=== PATIENT | female | born 1965 | race Caucasian/White ===

== ENCOUNTER 2019-09-07 08:01 | Outpatient (CLI) | payer OTHER ==
--- NOTE | 2019-09-07 09:58 | Mammography Report ---
Reason: ROUTINE MAMMO Procedure Date: 09/07/2019 Accession Number: [id number] / [id number] Procedure: MGS - Screening Mammo Dig Bilat CPT Code: Final Report FULL RESULT: EXAM: Screening Mammo Dig Bilat DATE: 09/07/2019 8:37 AM CLINICAL HISTORY: Screening encounter. History of late childbearing. TECHNIQUE: (B) - Bilateral CC and MLO views were obtained. Left laterally exaggerated CC view is obtained. COMPARISON: 02/07/2014 through 12/01/2009. PARENCHYMAL PATTERN: (D) - The breast(s) demonstrate(s) heterogeneously dense fibroglandular parenchyma. FINDINGS: Comparing the left MLO projection to 2014 there has been marked interval increase in density in the upper posterior tissue of the breast cone with suggestion of calcifications, 12 cm from the nipple. The finding is replicated on the left CC projection 12 cm from the nipple was a posterior axillary tail. This requires additional spot magnification views as well as 3-D mammography and ultrasound. There are no suspicious masses, calcifications, or areas of distortion in the right breast. IMPRESSION: Incomplete examination. BI-RADS category 0. RECOMMENDATION: (ADDMU) - Additional views using both Mammography and Ultrasound recommended. Left breast. BI-RADS CATEGORY: (0) - Incomplete Examination - need additional evaluation. STANDARD QUALIFYING STATEMENTS: 1. This examination was reviewed with the aid of Computer-Aided Detection (CAD). 2. A negative or benign imaging report should not preclude biopsy if clinically suspicious findings are present. 3. Dense breasts may obscure an underlying neoplasm. 4. This examination was reviewed without the aid of 3D breast imaging (tomosynthesis).
== END 2019-09-07 08:02 | disposition home or self-care (01) ==
LOC: DI.S 08:01
PROVIDERS: ATTEND Nurse Practitioner Family
DX: Z12.31 Encounter for screening mammogram for malignant neoplasm of breast (principal); R92.8 Other abnormal and inconclusive findings on diagnostic imaging of breast
CPT/HCPCS: 77067

== ENCOUNTER 2019-10-12 08:10 | Outpatient (CLI) | payer OTHER ==
--- NOTE | 2019-10-12 10:32 | Mammography Report ---
Reason: ABNORMAL SCREENING Procedure Date: 10/12/2019 Accession Number: [id number] / [id number] Procedure: TOMMY - Diag Special Views Dig LT CPT Code: Final Report FULL RESULT: EXAM: Diag Special Views Dig LT DATE: 10/12/2019 9:20 AM CLINICAL HISTORY: Diagnostic examination. TECHNIQUE: (L) - Left left CC view was obtained. Left magnified CC, left spot CC, left spot MLO and left magnified ML as well as left ML views are obtained. Focused left breast ultrasound is performed. COMPARISON: 09/25/2019 through 12/01/2009. PARENCHYMAL PATTERN: (D) - The breast(s) demonstrate(s) heterogeneously dense fibroglandular parenchyma. FINDINGS: Additional mammographic views confirm calcifications in the left breast upper outer quadrant with a grouping of calcifications 10.8 cm from the nipple on the left MLO projection as seen on image 15 and 19 which is associated with architectural distortion, also seen in CC projection 10.8 cm from the nipple in the lateral upper breast on image 38, suspicious. Focused left breast ultrasound of the left upper outer quadrant is performed which demonstrates no focal mass or architectural distortion which consequently correlates to the mammographic findings. 5 cm from the nipple at the 2:00 axis is a hypoechoic well-circumscribed wider than tall solid appearing mass which measures 0.8 x 0.5 x 0.5 cm, probably benign. IMPRESSION: Suspicious findings. BI-RADS category 4. RECOMMENDATION: (BIOPSY) - stereotactic biopsy with mammography guidance of the left breast architectural distortion with calcifications. 6 month follow-up ultrasound of probably benign left breast mass 2:00 axis 5 cm from the nipple. BI-RADS CATEGORY: (4) - Suspicious. STANDARD QUALIFYING STATEMENTS: 1. This examination was not reviewed with the aid of Computer-Aided Detection (CAD). 2. A negative or benign imaging report should not preclude biopsy if clinically suspicious findings are present. 3. Dense breasts may obscure an underlying neoplasm. 4. This examination was reviewed with the aid of 3D breast imaging (tomosynthesis).
== END 2019-10-12 08:11 | disposition home or self-care (01) ==
LOC: DI 08:10
PROVIDERS: ATTEND Nurse Practitioner Family
DX: R92.8 Other abnormal and inconclusive findings on diagnostic imaging of breast (principal)
CPT/HCPCS: 76642

== ENCOUNTER 2019-11-14 09:15 | Outpatient (CLI) | payer OTHER ==
[2019-11-14] MEDS ORDERED: BUFFERED LIDOCAINE 10 ML SYRINGE ONE (09:34)
[2019-11-14] MEDS ORDERED: BUFFERED LIDOCAINE 10 ML SYRINGE IU ONE (12:05)
--- NOTE | 2019-11-14 12:41 | Mammography Report ---
Reason: ABN MAMMMO - LEFT BREAST CALCS Procedure Date: 11/14/2019 Accession Number: [id number] / [id number] Procedure: TOMMY - Stereotactic Core BX LT CPT Code: 04766 Final Report FULL RESULT: EXAM: Stereotactic Core BX LT with tomographic targeting. DATE: 11/14/2019 11:27 AM CLINICAL HISTORY: ABN MAMMMO - LEFT BREAST CALCS COMPARISON: 10/12/2021 12/01/2009. CLINICAL DATA: Target architectural distortion with calcifications measuring approximately 1 cm in the 1 o'clock axis of the left breast. Informed consent was obtained. The patient was positioned in the mammography machine with biopsy attachment. Targeting imaging was obtained with tomography and the lesion was selected. The breast was approached from the lateral aspect. Using standard aseptic technique, 1% buffered lidocaine was injected into the breasts for local anesthesia. A small romelia was made in the skin with a #11 blade. A 9-gauge vacuum-assisted device was advanced into the breasts towards the target and confirmatory imaging was obtained to verify targeting and 16 specimens were obtained. Specimen radiography was performed which demonstrated the presence of calcifications in the sample. A biopsy marker clip was then placed into the biopsy cavity. The biopsy device was subsequently removed from the breast. Hemostasis was achieved. Follow-up 3-D mammography was then performed to verify biopsy targeting and clip placement. The mammography showed concordant biopsy cavity and clip placement . The wound was dressed and ice applied. The patient was observed for approximately 15 minutes, then discharged from the diagnostic imaging Department in stable condition following instructions on wound care and obtaining biopsy results. The tissue was sent for histologic analysis. IMPRESSION: Stereotactic left breast biopsy with tomographic guidance. RADIA
== END 2019-11-14 09:16 | disposition home or self-care (01) ==
LOC: DI 09:15
PROVIDERS: ATTEND Nurse Practitioner Family
DX: R92.0 Mammographic microcalcification found on diagnostic imaging of breast (principal); N60.12 Diffuse cystic mastopathy of left breast; D24.2 Benign neoplasm of left breast
CPT/HCPCS: 19081

== ENCOUNTER 2021-03-09 09:52 | Outpatient (CLI) | payer BC ==
--- NOTE | 2021-03-09 11:45 | Mammography Report ---
BILATERAL DIGITAL SCREENING MAMMOGRAM 3D/2D WITH EXAGGERATED CC: 03/09/2021 CLINICAL: Family history of breast cancer. Comparison is made to exams dated: 11/14/2019 mammogram, 10/12/2019 mammogram, 09/07/2019 mammogram, mammogram, 01/27/2011 mammogram, and 12/01/2009 mammogram - [facility]. The t issue of both breasts is heterogeneously dense. This may lower the sensitivity of mammography. There is a new architectural distortion in the right breast at 1 o'clock middle depth. No other significant masses, calcifications, or other findings are seen in either breast. IMPRESSION: INCOMPLETE: NEEDS ADDITIONAL IMAGING EVALUATION The new architectural distortion in the right breast is indeterminate. Additional views with possibl e ultrasound are recommended. This exam was interpreted at Station ID: [id number]. NOTE: For mammograms, a report in lay terms will be sent to the patient. Approximately 15% of breast malignancies will not be visualized mammographically. In the management of a palpable breast mass, a negative mammogram must not discourage biopsy of a clinically suspicious lesion. Electronically Signed By: Roderick Stearns M.D. aty/:03/09/2021 10:51:58 ACR BI-RADS Category 0: Incomplete 3340F PARENCHYMAL PATTERN: (D) - The breast(s) demonstrate(s) heterogeneously dense fibroglandular dov iraheta. BI-RADS CATEGORY: (0) - 0 Mammo and [place] [id number] Immediate follow-up LATERALITY: (R)
== END 2021-03-09 09:53 | disposition home or self-care (01) ==
LOC: DI.S 09:52
PROVIDERS: ATTEND Registered Nurse
DX: Z12.31 Encounter for screening mammogram for malignant neoplasm of breast (principal); Z80.3 Family history of malignant neoplasm of breast; R92.8 Other abnormal and inconclusive findings on diagnostic imaging of breast

== ENCOUNTER 2021-04-08 08:38 | Outpatient (CLI) | payer BC ==
--- NOTE | 2021-04-09 12:49 | Mammography Report ---
UNILATERAL RIGHT DIGITAL DIAGNOSTIC MAMMOGRAM 3D/2D: 04/08/2021 CLINICAL: Patient returns today to evaluate a focal asymmetry in the right breast. Comparison is made to exams dated: 03/09/2021 mammogram, 09/07/2019 mammogram, and 02/07/2014 mammogra m - [facility]. The tissue of right breast is heterogeneously dense. This may lowe r the sensitivity of mammography. There is an irregular mass with a spiculated margin in the right breast at 12 o'clock middle depth. This is seen in additional views. No other significant masses or calcifications are seen in the breast. IMPRESSION: INCOMPLETE: NEEDS ADDITIONAL IMAGING EVALUATION The irregular mass in the right breast is indeterminate. An ultrasound is recommended. This exam was interpreted at Station ID: [id number]. NOTE: For mammograms, a report in lay terms will be sent to the patient. Approximately 15% of breast malignancies will not be visualized mammographically. In the management of a palpable breast mass, a negative mammogram must not discourage biopsy of a clinically suspicious lesion. Electronically Signed By: Son angeles/darius:04/08/2021 11:17:19 ACR BI-RADS Category 0: Incomplete 3340F PARENCHYMAL PATTERN: (D) - The breast(s) demonstrate(s) heterogeneously dense fibroglandular dov iraheta. BI-RADS CATEGORY: (0) - 0 Ultrasound [id number] Immediate follow-up LATERALITY: (R)
--- NOTE | 2021-04-09 12:50 | Ultrasound Report ---
LIMITED ULTRASOUND OF RIGHT BREAST AND AXILLA: 04/08/2021 CLINICAL: Patient returns today to evaluate a focal asymmetry in the right breast. Comparison is made to exams dated: 04/08/2021 mammogram, 03/09/2021 mammogram, 09/07/2019 mammogram, a nd 02/07/2014 mammogram - [facility]. Color flow and real-time ultrasound of the right breast 11-1 o'clock, and axilla regions were perform ed. Reyez scale images of the real-time examination were reviewed. There is a 0.8 cm x 0.5 cm x 0.3 cm oval mass with a microlobulated and angular margin in the right b reast at 12 o'clock middle depth 8 cm from the nipple. This oval mass is hypoechoic with no posterio r acoustic shadowing or enhancement. This likely correlates with mammography findings. Color flow i maging demonstrates that there is no increase in vascularity. There also is a 1.2 cm x 1.5 cm x 0.3 cm irregular area of heterogeneous tissue in the right breast a t 11 o'clock anterior depth 7 cm from the nipple. This lesion is hypoechoic with no posterior acoust ic shadowing or enhancement. This most likely correlates as an incidental finding. Additionally, there is a benign 0.4 cm oval cyst with a smooth internal wall in the right breast at 1 o'clock posterior depth 8 cm from the nipple. This oval cyst displays posterior acoustic enhancemen t. This correlates as an incidental finding. No significant abnormalities were seen sonographically in the right axilla. IMPRESSION: SUSPICIOUS OF MALIGNANCY The 0.8 cm x 0.5 cm x 0.3 cm oval mass in the right breast at 12 o'clock middle depth is suspicious o f malignancy. An ultrasound guided biopsy is recommended. The findings and recommendations were dis cussed with the patient by the onsite radiologist, Dr. Morales, at the time of the exam. The 1.2 cm x 1.5 cm x 0.3 cm irregular area of heterogeneous tissue in the right breast at 11 o'clock anterior depth is probably benign. A follow-up ultrasound in 6 months is recommended. The 0.4 cm oval cyst in the right breast at 1 o'clock posterior depth is benign. This exam was interpreted at Station ID: [id number]. Electronically Signed By: Son Patel M.D. ar/:04/08/2021 11:37:48 Ultrasound BI-RADS: 4 Suspicious for malignancy BI-RADS CATEGORY: (4) - 4 None [id number] Immediate follow-up LATERALITY: ()
== END 2021-04-08 08:39 | disposition home or self-care (01) ==
LOC: DI 08:38
PROVIDERS: ATTEND Registered Nurse
DX: R92.8 Other abnormal and inconclusive findings on diagnostic imaging of breast (principal)

== ENCOUNTER 2021-08-14 11:16 | Emergency (ER) | payer BC ==
[2021-08-14] MEDS ORDERED: cefTRIAXone 1 GM in SODIUM CHLORIDE 0.9% MINIBAG 100 ML IV STA (12:16)
--- NOTE | 2021-08-14 12:17 | ED Physician Documentation ---
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 She had a lump removal reduction and lift. 2 days ago she began to develop redness and swelling to the lateral aspect of the right breast. Along the incision line she has pain tenderness redness and warmth. She does not have any drainage. She has developed fever today. Review of Systems Constitutional: reports: Fever, Chills, Myalgias Eyes: denies: Decreased vision Ears: denies: Ear pain Nose: denies: Congestion Throat: denies: Sore throat Cardiac: denies: Chest pain / pressure, Palpitations Respiratory: denies: Dyspnea, Cough GI: denies: Abdominal Pain, Nausea, Vomiting, Constipation, Diarrhea : denies: Dysuria Skin: denies: Rash Musculoskeletal: denies: Neck pain, Back pain, Extremity pain Neurologic: denies: Generalized weakness, Focal weakness, Numbness PD PAST MEDICAL HISTORY - Present Medications Home Medications: Ambulatory Orders Medication Instructions Recorded Confirmed cephALEXin [Keflex] 500 mg PO Q6H #28 cap 08/14/21 - Allergies Allergies/Adverse Reactions: Allergies Allergy/AdvReac Type Severity Reaction Status Date / Time No Known Drug Allergies Allergy Verified 08/14/21 11:30 - Social History Does the pt smoke?: No Smoking Status: Never smoker PD ED PE NORMAL - Vitals Vital signs reviewed: Yes (hypertensive) - General General: Alert and oriented X 3, No acute distress, Well developed/nourished - HEENT HEENT: Atraumatic, PERRL, EOMI - Neck Neck: Supple, no meningeal sign, No bony TTP - Cardiac Cardiac: RRR, No murmur - Respiratory Respiratory: No respiratory distress, Clear bilaterally, Other (There is swelling and erythema to the right breast to the entire lateral aspect of the breast extending to the axilla. It is well demarcated along the incision line. One portion of the incision is open superficially and there is no drainage. Nipple appear viable and intact. ) - Abdomen Abdomen: Soft, Non tender - Back Back: No CVA TTP, No spinal TTP - Derm Derm: Warm and dry, Other (redness swelling warmth and tenderness to the lateral aspect of the right breast. ) - Extremities Extremities: No deformity, No edema - Neuro Neuro: Alert and oriented X 3, education analyst 2-12 intact, No motor deficit, No sensory deficit, Normal speech Eye Opening: Spontaneous Motor: Obeys Commands Verbal: Oriented GCS Score: 15 - Psych Psych: Normal mood, Normal affect Results - Vitals Vitals: Vital Signs - 24 hr 08/14/21 08/14/21 08/14/21 11:18 13:55 16:13 Temperature 36.9 C 38.8 C H 38.1 C H Heart Rate 80 90 80 Respiratory 16 16 16 Rate Blood Pressure 152/84 H 149/80 H 119/59 L O2 Saturation 100 100 100 Oxygen O2 Source Room air - Labs Labs: Laboratory Tests 08/14/21 08/14/21 08/14/21 12:46 12:46 14:15 WBC 13.5 H RBC 4.06 L Hgb 11.7 L Hct 36.6 L MCV 90.1 MCH 28.8 MCHC 32.0 RDW 13.4 Plt Count 255 MPV 9.8 Neut # (Auto) Not Reportable Lymph # (Auto) Not Reportable Hale # (Auto) Not Reportable Eos # (Auto) Not Reportable Baso # (Auto) Not Reportable Absolute Nucleated RBC Not Reportable Total Counted 100 Band Neuts % (Manual) 0 Reactive Lymphs % (Man) 3 Abnorm Lymph % (Manual) 0 Nucleated RBC % Not Reportable Neutrophils # (Manual) 10.3 H Lymphocytes # (Manual) 2.0 Monocytes # (Manual) 0.9 Eosinophils # (Manual) 0.3 Basophils # (Manual) 0.0 Differential Comment MANUAL DIFFERENTIAL WBC Morphology NORMAL APPEARANCE Platelet Estimate NORMAL (130-450,000) Platelet Morphology NORMAL APPEARANCE RBC Morph Micro Appear NORMAL APPEARANCE Sodium 135 Potassium 4.0 Chloride 100 L Carbon Dioxide 26 Anion Gap 9.0 BUN 8 Creatinine 0.6 Estimated GFR (MDRD) 104 Glucose 74 Calcium 9.5 Total Bilirubin 0.5 AST 23 ALT 28 Alkaline Phosphatase 62 Total Protein 8.2 Albumin 4.0 Globulin 4.2 Albumin/Globulin Ratio 1.0 Lipase 21 L Nasal Adenovirus (PCR) NOT DETECTED Nasal B. parapertussis DNA (PCR) NOT DETECTED Nasal Coronavir 229E PCR NOT DETECTED Nasal Coronavir HKU1 PCR NOT DETECTED Nasal Coronavir NL63 PCR NOT DETECTED Nasal Coronavir OC43 PCR NOT DETECTED Nasal Enterovir/Rhinovir PCR NOT DETECTED Nasal Influenza B PCR NOT DETECTED Nasal Influenza A PCR NOT DETECTED Nasal Parainfluen 1 PCR NOT DETECTED Nasal Parainfluen 2 PCR NOT DETECTED Nasal Parainfluen 3 PCR NOT DETECTED Nasal Parainfluen 4 PCR NOT DETECTED Nasal RSV (PCR) NOT DETECTED Nasal B.pertussis DNA PCR NOT DETECTED Nasal C.pneumoniae (PCR) NOT DETECTED Srikanth Human Metapneumo PCR NOT DETECTED Nasal M.pneumoniae (PCR) NOT DETECTED Nasal SARS-CoV-2 (PCR) NOT DETECTED - Rads (name of study) u/s right breast Radiology: Other (rewiewed at bedside with submarine cable equipment technician. large fluid collection to the lateral aspect of the right breast. ) PD MEDICAL DECISION MAKING - ED course Complexity details: reviewed results, re-evaluated patient, considered differential, d/w patient ED course: 55-year-old female with a recent oncoplastic surgery appears to have a cellulitis to the breast on the right side. She also has what appears to be a seroma to the right side and this is incised and drained by Dr. Mas removing about a cup of fluid. Fluid is sent for culture. Dr. Lucina West plastic surgery was consulted in the case and recommended removal of fluid, culture and antibiotic. The patient was given IV rocephin prior to obtaining this specimen. Dr. West will follow the patient in the clinic this week. Departure - Departure Disposition: 01 Home, Self Care Clinical Impression: Cellulitis of right breast, Seroma of breast Condition: Stable Instructions: ED Infec Skin Cellulitis Follow-Up: YASMANI MALONE ARNP [Primary Care Provider] - Prescriptions: cephALEXin [Keflex] 500 mg PO Q6H #28 cap Comments: Follow up with Dr. Perla this week. If you have worsening of symptoms or development of new symptoms return for re-evaluation. Discharge Date/Time: 08/14/21 16:51
[2021-08-14 12:56] LABS: BASOPHILS % (AUTO) 0.4 %; EOSINOPHILS % (AUTO) 0.4 %; HCT - HEMATOCRIT 36.6 % (37.0-47.0); HGB - HEMOGLOBIN 11.7 g/dL (12.0-16.0); LYMPHOCYTES % (AUTO) 14.1 %; MEAN CORPUSCULAR HEMOGLOBIN 28.8 pg (27.0-31.0); MEAN CORPUSCULAR VOLUME 90.1 fL (81.0-99.0); MEAN PLATELET VOLUME 9.8 fL (7.9-10.8); MONOCYTES % (AUTO) 16.7 %; NEUTROPHILS % (AUTO) 67.8 %; PLT - PLATELET COUNT 255 10^3/uL (130-450); RED BLOOD COUNT 4.06 10^6/uL (4.20-5.40); RED CELL DISTRIBUTION WIDTH 13.4 % (12.0-15.0); WHITE BLOOD COUNT 13.5 x10^3/uL (4.8-10.8)
[2021-08-14 13:00] LABS: ABNORMAL LYMPHS % (MANUAL) 0 %; BAND NEUTROPHILS % (MANUAL) 0 %
[2021-08-14 13:08] LABS: BILIRUBIN,TOTAL 0.5 mg/dL (0.2-1.0); CALCIUM 9.5 mg/dL (8.5-10.3); CREATININE 0.6 mg/dL (0.4-1.0); TOTAL PROTEIN 8.2 g/dL (6.7-8.2)
[2021-08-14 13:32] LABS: EOSINOPHILS # (MANUAL) 0.3 10^3/uL (0-0.7); LYMPHOCYTES % (MANUAL) 12 %; MONOCYTES # (MANUAL) 0.9 10^3/uL (0.0-1.0); NEUTROPHILS # (MANUAL) 10.3 10^3/uL (1.5-6.6); REACTIVE LYMPHS % (MANUAL) 3 %
[2021-08-14 13:34] LABS: DIFFERENTIAL COMMENT MANUAL DIFFERENTIAL; PLATELET ESTIMATE, MANUAL NORMAL (130-450,000) (NORMAL); PLATELET MORPHOLOGY NORMAL APPEARANCE (NORMAL); RBC MORPHOLOGY (MULTIPLE) NORMAL APPEARANCE (NORMAL); WBC MORPHOLOGY (MULTIPLE) NORMAL APPEARANCE (NORMAL)
[2021-08-14] MEDS ORDERED: ACETAMINOPHEN 325 MG TABLET PO STA (13:58)
[2021-08-14] MEDS ORDERED: cefTRIAXone 1 GM VIAL ONE (14:09)
[2021-08-14] MEDS ORDERED: BUFFERED LIDOCAINE 10 ML SYRINGE SUBQ STA (15:26)
[2021-08-14 15:34] LABS: B. PARAPERTUSSIS- RESP PCR PAN NOT DETECTED; B. PERTUSSIS- RESP PCR PANEL NOT DETECTED; C. PNEUMONIAE- RESP PCR PANEL NOT DETECTED; CORONAVIRUS 229E-RESP PCR NOT DETECTED; CORONAVIRUS HKU1-RESP PCR NOT DETECTED; CORONAVIRUS NL63-RESP PCR NOT DETECTED; CORONAVIRUS OC43-RESP PCR NOT DETECTED; HUMAN METAPNEUMOVIRUS NOT DETECTED; INFLUENZA A- RESP PCR PANEL NOT DETECTED; INFLUENZA B - RESP PCR PANEL NOT DETECTED; M. PNEUMONIAE- RESP PCR PANEL NOT DETECTED; PARAINFLUENZA VIRUS 1 NOT DETECTED; PARAINFLUENZA VIRUS 2 NOT DETECTED; PARAINFLUENZA VIRUS 3 NOT DETECTED; PARAINFLUENZA VIRUS 4 NOT DETECTED; RHINOVIRUS/ENTEROVIRUS NOT DETECTED; RSV- RESP PCR PANEL NOT DETECTED; SARS-CoV-2 -RESP PCR PANEL NOT DETECTED
[2021-08-14 16:14] VITALS: BP 119/59
--- NOTE | 2021-08-14 16:20 | CONSULTATION NOTE ---
Referring Provider Consult Date: 08/14/21 Chief Complaint - Chief Complaint Chief Complaint: right breast pain with fevers and chills History of Present Illness - History Obtained From History obtained from: pt Exam Limitations: none - History of Present Illness HPI Comment/Other: recent right breast surgery. pain, fever, chills, not feeling well. seen in the ED. Meds/Allgy - Allergies Allergies/Adverse Reactions: Allergies Allergy/AdvReac Type Severity Reaction Status Date / Time No Known Drug Allergies Allergy Verified 08/14/21 11:30 Exam - Vital Signs Vital Signs: Vital Signs x48h Temp Pulse Resp BP Pulse Ox 08/14/21 16:13 38.1 C H 80 16 119/59 L 100 08/14/21 13:55 38.8 C H 90 16 149/80 H 100 08/14/21 11:18 36.9 C 80 16 152/84 H 100 - Physical Exam General Appearance: positive: No acute distress, Alert Eyes Bilateral: positive: PERRL, EOMI ENT: positive: No signs of dehydration Neck: positive: No JVD Respiratory: positive: No respiratory distress Abdomen: positive: No distention Comments/Other: right breast firm. reduction type incisions healed. ultrasound large fluid collection. after parq and consent I and D is performed. clean technique and local anesthesia culture taken as requested per her surgeon perhaps 200 ml very warm serosanguinous fluid well tolerated. Conclusion and Plan - Lab Results Laboratory Results 08/14/21 14:15: Nasal Adenovirus (PCR) NOT DETECTED, Nasal B. parapertussis DNA (PCR) NOT DETECTED, Nasal Coronavir 229E PCR NOT DETECTED, Nasal Coronavir HKU1 PCR NOT DETECTED, Nasal Coronavir NL63 PCR NOT DETECTED, Nasal Coronavir OC43 PCR NOT DETECTED, Nasal Enterovir/Rhinovir PCR NOT DETECTED, Nasal Influenza B PCR NOT DETECTED, Nasal Influenza A PCR NOT DETECTED, Nasal Parainfluen 1 PCR NOT DETECTED, Nasal Parainfluen 2 PCR NOT DETECTED, Nasal Parainfluen 3 PCR NOT DETECTED, Nasal Parainfluen 4 PCR NOT DETECTED, Nasal RSV (PCR) NOT DETECTED, Nasal B.pertussis DNA PCR NOT DETECTED, Nasal C.pneumoniae (PCR) NOT DETECTED, Srikanth Human Metapneumo PCR NOT DETECTED, Nasal M.pneumoniae (PCR) NOT DETECTED, Nasal SARS-CoV-2 (PCR) NOT DETECTED 08/14/21 12:46: Sodium 135, Potassium 4.0, Chloride 100 L, Carbon Dioxide 26, Anion Gap 9.0, BUN 8, Creatinine 0.6, Estimated GFR (MDRD) 104, Glucose 74, Calcium 9.5, Total Bilirubin 0.5, AST 23, ALT 28, Alkaline Phosphatase 62, Total Protein 8.2, Albumin 4.0, Globulin 4.2, Albumin/Globulin Ratio 1.0, Lipase 21 L 08/14/21 12:46: WBC 13.5 H, RBC 4.06 L, Hgb 11.7 L, Hct 36.6 L, MCV 90.1, MCH 28.8, MCHC 32.0, RDW 13.4, Plt Count 255, MPV 9.8, Neut # (Auto) Not Reportable, Lymph # (Auto) Not Reportable, [place] # (Auto) Not Reportable, Eos # (Auto) Not Reportable, Baso # (Auto) Not Reportable, Absolute Nucleated RBC Not Reportable, Total Counted 100, Band Neuts % (Manual) 0, Reactive Lymphs % (Man) 3, Abnorm Lymph % (Manual) 0, Nucleated RBC % Not Reportable, Neutrophils # (Manual) 10.3 H, Lymphocytes # (Manual) 2.0, Monocytes # (Manual) 0.9, Eosinophils # (Manual) 0.3, Basophils # (Manual) 0.0, Differential Comment MANUAL DIFFERENTIAL, WBC Morphology NORMAL APPEARANCE, Platelet Estimate NORMAL (130-450,000), Platelet Morphology NORMAL APPEARANCE, RBC Morph Micro Appear NORMAL APPEARANCE - Diagnosis Diagnosis: postop infected seroma right breast - Plan Plan: I and D performed. well tolerated daily dry dressing and prn she may remove the current dressing tomorrow am. no need to repack the incision area. follow up [place] surgery as needed she has follow up with her plastic surgeon
--- NOTE | 2021-08-18 12:44 | Ultrasound Report ---
LIMITED ULTRASOUND OF RIGHT BREAST: 08/14/2021 CLINICAL: Diffuse right breast pain. Comparison is made to exams dated: 04/08/2021 ultrasound, 04/08/2021 mammogram, 03/09/2021 mammogram, mammogram, and 10/12/2019 ultrasound - [facility]. Color flow and real-time ultrasound of the right breast 4-11 o'clock region were performed. Reyez sca le images of the real-time examination were reviewed. There is a 8.1 cm x 11.3 cm x 2.9 cm oval fluid collection with a septated internal wall in the right breast at 9 o'clock middle depth 15 cm from the nipple. This oval fluid collection is anechoic and hypoechoic with posterior acoustic enhancement. This correlates as palpated. There is associated ov erlying skin thickening and soft tissue edema. The previously seen suspicious oval mass in the right breast at the 12 o'clock position middle depth is no longer seen. IMPRESSION: BENIGN The 8.1 cm x 11.3 cm x 2.9 cm oval fluid collection in the right breast is most likely a chronic altagracia juan or complicated seroma, although a superimposed infection or abscess is not excluded. Diagnostic and therapeutic aspiration could be performed to direct therapy. Recommend clinical correlation and f ollow up. Preliminary findings were conveyed to the Dr. Purcell of the Emergency Department by the s onographer at the time of the exam. The previously seen suspicious oval mass in the right breast at the 12 o'clock position middle depth is no longer seen. The patient reports she had an outside biopsy demonstrating malignancy, which was subsequently surgically removed. Recommend correlation with outside records. There is no sonographic evidence of malignancy. This exam was interpreted at Station ID: [id number]. Electronically Signed By: Son Patel M.D. ar/:08/14/2021 14:24:44 Ultrasound BI-RADS: 2 Benign BI-RADS CATEGORY: (2) - 2 RECOMMENDATION: (ANNUAL) - Recommend routine annual screening mammography. [id number] 1 year screening LATERALITY: (B)
== END 2021-08-14 16:51 | disposition home or self-care (01) ==
LOC: ED 11:16
DX: N61.0 Mastitis without abscess (principal); M96.843 Postprocedural seroma of a musculoskeletal structure following other procedure; Y83.8 Other surgical procedures as the cause of abnormal reaction of the patient, or of later complication, without mention of misadventure at the time of the procedure; Z98.890 Other specified postprocedural states; Z20.822 Contact with and (suspected) exposure to COVID-19
CPT/HCPCS: 0202U; 10140; 36415; 76642; 80053; 83690; 85025; 87040; 87070; 87205; 96365; 99284; A9270

== ENCOUNTER 2021-11-04 08:02 | Outpatient (CLI) | payer BC ==
[2021-11-04 15:07] LABS: BASOPHILS % (AUTO) 0.8 %; EOSINOPHILS # (AUTO) 0.2 10^3/uL (0.0-0.7); HCT - HEMATOCRIT 36.4 % (37.0-47.0); HGB - HEMOGLOBIN 11.6 g/dL (12.0-16.0); LYMPHOCYTES # (AUTO) 0.7 10^3/uL (1.5-3.5); LYMPHOCYTES % (AUTO) 18.3 %; MEAN CORPUSCULAR HEMOGLOBIN 28.9 pg (27.0-31.0); MEAN CORPUSCULAR HGB CONC 31.9 g/dL (32.0-36.0); MEAN CORPUSCULAR VOLUME 90.5 fL (81.0-99.0); MEAN PLATELET VOLUME 10.3 fL (7.9-10.8); MONOCYTES # (AUTO) 0.5 10^3/uL (0.0-1.0); MONOCYTES % (AUTO) 11.6 %; NEUTROPHILS # (AUTO) 2.6 10^3/uL (1.5-6.6); NEUTROPHILS % (AUTO) 64.8 %; PLT - PLATELET COUNT 220 10^3/uL (130-450); RED BLOOD COUNT 4.02 10^6/uL (4.20-5.40); RED CELL DISTRIBUTION WIDTH 14.8 % (12.0-15.0)
[2021-11-04 15:08] LABS: PT - PROTHROMBIN TIME 11.3 secs (9.9-12.6)
[2021-11-04 15:09] LABS: PARTIAL THROMBOPLASTIN TIME 24.5 secs (24.9-33.3)
[2021-11-04 15:37] LABS: ALBUMIN 3.4 g/dL (3.2-5.5); BILIRUBIN,TOTAL 0.6 mg/dL (0.2-1.0); CALCIUM 9.1 mg/dL (8.5-10.3); CREATININE 0.6 mg/dL (0.4-1.0); POTASSIUM 4.1 mmol/L (3.5-5.0); TOTAL PROTEIN 6.9 g/dL (6.7-8.2)
== END 2021-11-04 08:03 | disposition home or self-care (01) ==
LOC: LAB.S 08:02
PROVIDERS: ATTEND Internal Medicine Medical Oncology
DX: C50.211 Malignant neoplasm of upper-inner quadrant of right female breast (principal); N92.1 Excessive and frequent menstruation with irregular cycle
CPT/HCPCS: 36415; 80053; 83540; 84466; 85025; 85610; 85730

== ENCOUNTER 2024-03-28 08:07 | Outpatient (CLI) | payer BC ==
[2024-03-28 16:11] LABS: THYROID STIMULATING HORMONE 2.63 uIU/mL (0.34-5.60)
[2024-03-28 16:18] LABS: FERRITIN 16.5 ng/mL (11.0-306.8)
[2024-03-28 20:09] LABS: ESTIMATED AVERAGE GLUCOSE 105 mg/dL (70-100); HEMOGLOBIN A1c% 5.3 % (4.27-6.07)
== END 2024-03-28 08:08 | disposition home or self-care (01) ==
LOC: LAB.S 08:07
DX: R73.03 Prediabetes (principal); C50.919 Malignant neoplasm of unspecified site of unspecified female breast; E61.1 Iron deficiency; Z71.3 Dietary counseling and surveillance
CPT/HCPCS: 36415; 82306; 82607; 82728; 83036; 83540; 84443; 84466

== ENCOUNTER 2024-06-20 08:21 | Outpatient (CLI) | payer BC ==
[2024-06-21 08:11] LABS: ESTRADIOL 18.2 pg/mL (.); PROGESTERONE 0.2 ng/mL (.)
== END 2024-06-20 08:22 | disposition home or self-care (01) ==
LOC: LAB.S 08:21
PROVIDERS: ATTEND Naturopath
DX: N95.0 Postmenopausal bleeding (principal)
CPT/HCPCS: 36415; 82670; 83001; 84144